=== PATIENT | male | born 1965 | race Caucasian/White ===

== ENCOUNTER 2021-09-14 20:56 | Emergency (ER) | payer SELFPAY ==
[2021-09-14 21:12] VITALS: BP 121/58; PULSE 74; RESP 16; TEMP 37.2; O2SAT 100; BMI 21.4
--- NOTE | 2021-09-14 21:13 | DI.RAD.S_ITS ---
PROCEDURE: XR FINGER LT MIN 2V INDICATIONS: axe injury to thumb, jess fracture TECHNIQUE: AP hand, 2 views of the left finger(s) acquired. COMPARISON: None. FINDINGS: Bones: No fractures or dislocations. No suspicious bony lesions. Scattered degenerative subchondral sclerosis and spurring. Soft tissues: Laceration of the distal tip of the thumb. IMPRESSION: Soft tissue laceration at the distal thumb. No fracture identified. Dictated by: Suman Smith M.D. on 09/14/2021 at 21:52 Approved by: Suman Smith M.D. on 09/14/2021 at 21:53
[2021-09-14] MEDS: cephALEXin 250 MG PREPACK 1 BOTTLE MISC (21:22)
--- NOTE | 2021-09-14 21:22 | ED_ITS ---
HPI - Extremity Injury (Upper) General Chief Complaint: Wound/Laceration Stated Complaint: cut left thumb with a axe Time Seen by Provider: 09/14/21 21:04 Source: patient Mode of arrival: Ambulatory Limitations: no limitations History of Present Illness HPI narrative: 56-year-old male smoker with noncontributory medical history presents with a chief complaints of an accidental injury to his left thumb. He was chopping with an Axe and hit the tip of his thumb and claims that he nearly shot that off. He denies any numbness or tingling. It bled a fair amount on scene but is improved now as he had taken very to come see us. His tetanus is up-to-date. He denies any other injury Related Data Home Medications Medication Instructions Recorded Confirmed IBUPROFEN (Motrin / Advil) 0 mg PO PRN #0 02/07/10 Previous Rx's Medication Instructions Recorded cephalexin 500 mg capsule 500 mg PO Q6H 7 Days #28 cap 09/14/21 Allergies Allergy/AdvReac Type Severity Reaction Status Date / Time No Known Drug Allergies Allergy Verified 09/14/21 21:17 Review of Systems Review of Systems Narrative: GENERAL: Denies chills, fatigue, malaise, fever, sweats. HEENT: Denies sinus pain, ear pain, sore throat, difficulty swallowing, dizziness. RESPIRATORY: Denies dyspnea, cough, wheezing, hemoptysis, sputum. CARDIOVASCULAR: Denies chest pain, palpitations, orthopnea, edema, GASTROINTESTINAL: Denies nausea, vomiting, abdominal pain, diarrhea, constipation, melena. : Denies dysuria, frequency, incontinence, hematuria, urinary retention. MUSCULOSKELETAL: See SKIN: Denies rash, skin lesions, or other NEUROLOGIC: Denies weakness, headache, numbness, change in speech, confusion, seizures, incoordination. PSYCHIATRIC: No concerning psychosocial issues. 12 point review of systems is negative except for those stated above Patient History Social History Smoking Status: Current every day smoker Smoking Status: Current every day smoker alcohol intake frequency: holidays/special occasions only Substance Use Type: does not use Exam Narrative Exam Narrative: GEN: AOx3 and in mild distress EYES: Pupils are equal, round, and reactive to light and accommodation. Extraoccular muscles are intact bilaterally. There is no subconjunctival hemorrhage or exudate. CHEST: Lungs are clear to auscultation bilaterally and free of wheezes, rales, or rhonchi. Heart rate is regular rhythm, there are no murmurs, clicks, rubs, or gallops. There is no chest wall tenderness. ABD: Abdomen is soft and nontender. There is no guarding or rebound. Bowel sounds are normal in all 4 quadrants. There is no mass or organomegaly. EXT: 1.5 cm avulsion type laceration to the tip left, no active bleeding or bone exposed, there is a sliver of nail involved but no obvious nail bed involvement Full painless ROM of all extremities with no loss of sensation or strength. SKIN: Warm, pink, and dry. No erythema or rash Initial Vital Signs Initial Vital Signs: Vital Signs Temperature 98.9 F 09/14/21 21:12 Pulse Rate 74 09/14/21 21:12 Respiratory Rate 16 09/14/21 21:12 Blood Pressure 121/58 L 09/14/21 21:12 Pulse Oximetry 100 09/14/21 21:12 Procedures Laceration Repair Laceration 1: Site: hand (Thumb) Side (If applicable): left Size (cm): 1.5 Description: flap Depth: simple, single layer Pre-repair: wound explored Skin layer closed with: nylon Size (cm): 5-0 Number of sutures: 2 Technique: simple, interrupted Nerve Block Nerve Block 1: Time out performed: Yes Local Anesthetic: lidocaine 1% and with bicarb Amount of anesthesia used (mL): 4 Side: left Nerve Blocks: digital Procedure Successful: Yes Patient Tolerated Procedure: Well Complications: none Course Orders Ordered: ED Orders 09/14/21 21:13 XR finger LT min 2V Stat Discontinued Medications Hydrocodone Bitart/Acetaminophen (Hydrocodone/Acet 5/325 Prepack) 1 bottle MISC SEEINSTR ONE Stop: 09/14/21 22:42 Last Admin: 09/14/21 22:48 Dose: 1 bottle Documented by: JORGE LUIS Cefazolin Sodium (Cephalexin 250 Mg Prepack) 1 bottle MISC SEEINSTR ONE Stop: 09/14/21 21:14 Last Admin: 09/14/21 21:22 Dose: 1 1000units Documented by: KBROTEM Lidocaine/Sodium Bicarbonate (Lido 1%/Sod Bicarb 8.4% (10ml) 10 Ml Syringe) 10 ml INJ NOW ONE Stop: 09/14/21 21:14 Last Admin: 09/14/21 21:23 Dose: 10 ml Documented by: ALDO Vital Signs Vital signs: Vital Signs - 8 hr 09/14/21 21:12 09/14/21 22:56 Temperature 98.9 F Pulse Rate 74 65 Respiratory Rate 16 15 Blood Pressure 121/58 L 137/78 Pulse Oximetry 100 96 Discharge Plan Departure Patient Disposition: Home Clinical Impression: Avulsion of skin Instructions: DI for Laceration Repair Activity Restrictions/Additional Instructions: *You have been diagnosed with [left thumb avulsion laceration] *What to do: *Please continue to take your regular medications as directed. [ ] New medication prescriptions sent to your pharmacy: [ ] [x ] New medication written as a paper prescription [ ] No new medications given *Please follow up with your primary care provider in 2-3 days, call for an appointment. Let them know you were seen in the Emergency Department and that we ask that you be seen in follow up. We will electronically transmit a record of today's note if your PCP is in our system *If you do not have a primary care provider please contact the [facility] Resource line at [phone]. They will ask some questions about your medical history and help get you set up with a doctor in the community. *Return to Emergency Department if you should have any new, worsening or concerning symptoms, such as [fever greater than 101 F, shaking chills, worsening pain, persistent vomiting or other bothersome symptoms] Prescriptions: New cephalexin 500 mg capsule 500 mg PO Q6H 7 Days Qty: 28 RF: 0 No Action IBUPROFEN (Motrin / Advil) 0 mg PO PRN Qty: 0 RF: 0 Referrals: Tory Mckenzie PA-C [Primary Care Provider] -
[2021-09-14] MEDS: LIDO 1%/SOD BICARB 8.4% (10ML) 10 ML SYRINGE INJ (21:23)
[2021-09-14] MEDS: HYDROCODONE/ACET 5/325 PREPACK 1 BOTTLE MISC (22:48)
[2021-09-14 22:56] VITALS: BP 137/78; PULSE 65; RESP 15; O2SAT 96
== END 2021-09-14 22:57 | disposition home or self-care (01) ==
PROVIDERS: Emergency Provider Emergency Medicine; PCP Physician Assistant
DX: S61.102A Unspecified open wound of left thumb with damage to nail, initial encounter (principal); W26.8XXA Contact with other sharp object(s), not elsewhere classified, initial encounter
CPT/HCPCS: 12001; 64450; 73140; 99282; 99283

== ENCOUNTER 2021-10-10 15:05 | Emergency (ER) | payer SELFPAY ==
[2021-10-10 15:17] VITALS: BP 173/73; PULSE 84; RESP 22; TEMP 37; O2SAT 97
--- NOTE | 2021-10-10 15:20 | DI.RAD.S_ITS ---
PROCEDURE: XR TIBIA FUBULA RT 2V INDICATIONS: pain/tenderness no known injury TECHNIQUE: 2 views of the tibia and fibula were acquired. COMPARISON: None. FINDINGS: Bones: No fractures or dislocations. No suspicious bony lesions. Soft tissues: No suspicious soft tissue calcifications or masses. IMPRESSION: No gross acute right lower leg fracture or dislocation. No suspicious intraosseous lesion. No gross soft tissue abnormality. Dictated by: Sylvester Pitts M.D. on 10/10/2021 at 15:39 Approved by: Sylvester Pitts M.D. on 10/10/2021 at 15:39
[2021-10-10] MEDS: CYCLOBENZAPRINE 10 MG TABLET PO (18:23)
[2021-10-10] MEDS: KETOROLAC 30 MG/ML VIAL 15 MG IM (18:23)
--- NOTE | 2021-10-15 16:06 | ED.BACK ---
HPI - Back Pain/Injury <Paula Silverio PA-C - Last Filed: 10/15/21 16:21> General Chief Complaint: Back Pain/Injury Stated Complaint: BACK PAIN, FELL Time Seen by Provider: 10/10/21 18:03 Source: patient History of Present Illness HPI Narrative: 56-year-old male with no reported past medical history presents to the ED with 3 weeks of right-sided lower back pain. Patient states that the pain radiates down the back of his right leg. patient denies numbness, tingling, weakness. Patient denies trauma. Patient states that he has a history of sciatica. Patient denies IV drug use. Patient denies chest pain, fever, chills, shortness of breath, cough, nausea, vomiting, abdominal pain, dysuria, urinary hesitancy, urinary incontinence, stool incontinence, saddle paresthesia, lightheadedness, dizziness, syncope. Related Data Home Medications Medication Instructions Recorded Confirmed IBUPROFEN (Motrin / Advil) 0 mg PO PRN #0 02/07/10 Allergies Allergy/AdvReac Type Severity Reaction Status Date / Time No Known Drug Allergies Allergy Verified 09/14/21 21:17 Review of Systems <Paula Silverio PA-C - Last Filed: 10/15/21 16:21> Review of Systems ROS Unobtainable: All systems reviewed & are unremarkable except as noted in HPI and below Constitutional Constitutional: Denies chills, Denies fatigue, Denies fever(s), Denies frequent falls, Denies lethargy and Denies weakness Eyes Eyes: Denies change in vision, Denies eye discharge, Denies irritation and Denies loss of vision ENT Ears, Nose, Mouth, and Throat: Denies change in voice, Denies dizziness, Denies neck pain, Denies sore throat and Denies throat swelling Cardiovascular Cardiovascular: Denies chest pain, Denies irregular heart rhythm, Denies lightheadedness, Denies palpitations, Denies dyspnea, Denies dyspnea on exertion and Denies orthopnea Respiratory Respiratory: Denies cough, Denies dyspnea, Denies dyspnea on exertion and Denies wheezing Gastrointestinal Gastrointestinal: Denies abdominal pain, Denies change in bowel habits, Denies diarrhea, Denies nausea and Denies vomiting Genitourinary Genitourinary: Denies hematuria, Denies flank pain, Denies urinary incontinence and Denies urinary urgency Musculoskeletal Musculoskeletal: Reports back pain, Denies muscle weakness, Denies neck pain, Denies numbness, Reports radiating pain into limb ( Right-sided lower back pain radiating down the back of the right leg) and Denies tingling Integumentary/Breasts Skin/Breast: Denies pruritus, Denies erythema, Denies rash and Denies wounds Neurologic Neurologic: Denies behavioral changes, Denies confusion, Denies dizziness, Denies frequent falls, Denies loss of vision, Denies numbness, Denies tingling and Denies weakness Psychiatric Psychiatric: Denies anxiety, Denies behavioral changes, Denies confusion, Denies depression, Denies homicidal ideation and Denies suicidal ideation Endocrine Endocrine: Denies fatigue, Denies flushing and Denies palpitations Hematologic/Lymphatic Hematologic/Lymphatic: Denies easy bruising Allergic/Immunologic Allergic/Immunologic: Denies urticaria, Denies throat swelling and Denies wheezing Patient History <Paula Silverio PA-C - Last Filed: 10/15/21 16:21> Social History Smoking Status: Current every day smoker Smoking Status: Current every day smoker alcohol intake frequency: holidays/special occasions only Substance Use Type: does not use Exam <Paula Silverio PA-C - Last Filed: 10/15/21 16:21> Initial Vital Signs Initial Vital Signs: Vital Signs Temperature 98.6 F 10/10/21 15:17 Pulse Rate 84 10/10/21 15:17 Respiratory Rate 22 10/10/21 15:17 Blood Pressure 173/73 H 10/10/21 15:17 Pulse Oximetry 97 10/10/21 15:17 Const General: cooperative, healthy appearing and comfortable [facility] Head: normal to inspection Eyes General: appearance normal, both eyes and all related structures Neck Neck: normal visual inspection, full ROM, no meningeal signs and supple Resp Effort & Inspection: normal respiratory effort Auscultation: clear to auscultation bilaterally Cardio Rate: regular rate Rhythm: regular rhythm GI Inspection: normal to inspection Other: abdomen is soft, nondistended, nontender to palpation. No CVA tenderness. General: No CVA tenderness Back/Spine/Pelvis Back: normal to inspection Thoracic/Lumbar Spine: straight leg raise positive (Right side) Other: Full range of motion. Strength and sensation intact. Skin General: no rashes or lesions noted Neuro General: patient alert, patient awake and patient oriented x3 Gait: normal gait Extrem General: normal to inspection and full ROM <DO Margaux Jacobs Last Filed: 10/16/21 07:05> Initial Vital Signs Initial Vital Signs: Vital Signs Temperature 98.6 F 10/10/21 15:17 Pulse Rate 84 10/10/21 15:17 Respiratory Rate 22 10/10/21 15:17 Blood Pressure 173/73 H 10/10/21 15:17 Pulse Oximetry 97 10/10/21 15:17 Course <Paula Silverio PA-C - Last Filed: 10/15/21 16:21> Orders Ordered: Discontinued Medications Cyclobenzaprine HCl (Cyclobenzaprine 10 Mg Tablet) 10 mg PO NOW ONE Stop: 10/10/21 18:13 Last Admin: 10/10/21 18:23 Dose: 10 mg Documented by: MARLY Ketorolac Tromethamine (Ketorolac 30 Mg/Ml Vial) 15 mg IM NOW ONE Stop: 10/10/21 18:13 Last Admin: 10/10/21 18:23 Dose: 15 mg Documented by: MARLY <DO Margaux Jacobs Last Filed: 10/16/21 07:05> Orders Ordered: Discontinued Medications Cyclobenzaprine HCl (Cyclobenzaprine 10 Mg Tablet) 10 mg PO NOW ONE Stop: 10/10/21 18:13 Last Admin: 10/10/21 18:23 Dose: 10 mg Documented by: MARLY Ketorolac Tromethamine (Ketorolac 30 Mg/Ml Vial) 15 mg IM NOW ONE Stop: 10/10/21 18:13 Last Admin: 10/10/21 18:23 Dose: 15 mg Documented by: MARLY MDM - Back Pain/Injury <JERICHO Velarde Last Filed: 10/15/21 16:21> Medical Records Attestation: I reviewed the patient's medical records. Imaging Data Extremity x-ray #1: Radiologist's Impression: PROCEDURE:? XR TIBIA FUBULA RT 2V ? INDICATIONS:? pain/tenderness no known injury ? TECHNIQUE:? 2 views of the tibia and fibula were acquired.? ? COMPARISON:? None. ? FINDINGS:? ? Bones:? No fractures or dislocations.? No suspicious bony lesions.? ? Soft tissues:? No suspicious soft tissue calcifications or masses.? ? IMPRESSION:? No gross acute right lower leg fracture or dislocation.? No suspicious intraosseous lesion.? No gross soft tissue abnormality. ? ? Dictated by: Sylvester Pitts M.D. on 10/10/2021 at 15:39 ? ? Approved by: Sylvester Pitts M.D. on 10/10/2021 at 15:39 ? MDM Narrative Medical decision making narrative: 56-year-old male with no reported past medical history presents to the ED with 3 weeks of right-sided lower back pain. Patient's physical exam positive for SLR on the right side. Strength and sensation is intact. Range of motion intact. X-ray negative for acute findings. Given physical exam, history, patient's symptoms are likely due to sciatica. Will treat pain with ketorolac and Flexeril. Will discharge home with ED return precautions, PCP follow-up. Discharge Plan Departure Patient Disposition: Home Clinical Impression: Back pain Instructions: DI for Back Pain With Sciatica Activity Restrictions/Additional Instructions: You were evaluated in the ED today for lower back pain. Your symptoms are likely from sciatica. You may continue to take ibuprofen or Tylenol for relief. Please follow-up with your PCP so you can get a referral for physical therapy. Return to the ED if your pain worsens, you develop a fever, chills, you experience numbness, tingling, weakness. Prescriptions: No Action IBUPROFEN (Motrin / Advil) 0 mg PO PRN Qty: 0 0RF Referrals: Tory Mckenzie PA-C [Primary Care Provider] - <Ishan Davis DO - Last Filed: 10/16/21 07:05> [facility] Dr Davis Co-Sign Statement: I was available for consultation during this patient's emergency department visit. This chart is signed by myself for administrative purposes only. I did not have direct contact with this patient during this visit. They were seen independently by the APC.
== END 2021-10-10 18:31 | disposition home or self-care (01) ==
PROVIDERS: Emergency Provider Student in an Organized Health Care Education/Training Program; PCP Physician Assistant
DX: M54.31 Sciatica, right side (principal)
CPT/HCPCS: 73590; 96372; 99283; 99284; J1885